=== PATIENT | male | born 1950 | race Caucasian/White ===

== ENCOUNTER 2019-04-21 10:45 | Inpatient (IN) ==
[2019-04-21] MEDS ORDERED: diphenhydrAMINE CAP 25 MG CAPSULE PO ONE (11:00)
[2019-04-21] MEDS ORDERED: DIAZEPAM 5 MG TABLET PO ONE (11:00)
[2019-04-21] MEDS: SODIUM CHLORIDE 0.9% 1,000 ML IV SCH ×2 (11:30→20:00)
[2019-04-21] MEDS ORDERED: ASPIRIN 325 MG TABLET ONE (11:37)
[2019-04-21] MEDS ORDERED: diphenhydrAMINE CAP 25 MG CAPSULE ONE (11:37)
[2019-04-21] MEDS ORDERED: DIAZEPAM 5 MG TABLET ONE (11:37)
[2019-04-21] MEDS ORDERED: ASPIRIN 325 MG TABLET PO ONE (11:44)
[2019-04-21] MEDS ORDERED: LIDOCAINE 1% 20 ML VIAL ONE (13:38)
[2019-04-21] MEDS ORDERED: HEPARIN/NACL 0.9% 2 UNITS/ML 1,000 ML IV ONE (13:38)
[2019-04-21] MEDS ORDERED: VERAPAMIL 5 MG/2 ML VIAL ONE (13:38)
[2019-04-21] MEDS ORDERED: NITROGLYCERIN DRIP 50 MG/250 ML BOTTLE IV ONE (13:38)
[2019-04-21] MEDS ORDERED: MIDAZOLAM 2 MG/2 ML VIAL ONE (13:43)
[2019-04-21] MEDS ORDERED: fentaNYL 100 MCG/2 ML VIAL ONE (13:44)
[2019-04-21] MEDS ORDERED: ENOXAPARIN 60 MG/0.6 ML SYRINGE ONE (14:00)
[2019-04-21] MEDS ORDERED: ACETAMINOPHEN 325 MG TABLET PO PRN (14:28)
[2019-04-21] MEDS ORDERED: ONDANSETRON 4 MG/2 ML VIAL IV PRN (14:28)
[2019-04-21] MEDS ORDERED: NITROGLYCERIN SL 0.4 MG TABLET SL PRN (14:30)
[2019-04-21] MEDS: ATORVASTATIN 80 MG TABLET PO SCH (20:08)
[2019-04-21] MEDS: oxyCODONE IR 5 MG TABLET PO PRN (20:08)
[2019-04-21] MEDS ORDERED: PRAVASTATIN 40 MG PO SCH (21:00)
[2019-04-21] MEDS ORDERED: METHOCARBAMOL 750 MG TABLET PO PRN (21:00)
[2019-04-21] MEDS: GABAPENTIN 100 MG CAPSULE PO SCH ×2 (21:34→22:15)
[2019-04-21] MEDS: ZALEPLON 5 MG CAPSULE PO SCH (22:15)
[2019-04-21] MEDS: LISINOPRIL 20 MG TABLET PO SCH (22:16)
[2019-04-21] MEDS: METOPROLOL TARTRATE 25 MG TABLET PO SCH (22:16)
[2019-04-21] MEDS: hydroCHLOROthiazide 12.5 MG CAPSULE PO SCH (22:16)
[2019-04-22] MEDS: SODIUM CHLORIDE 0.9% 1,000 ML IV SCH ×3 (03:08→21:12)
[2019-04-22] MEDS: oxyCODONE IR 5 MG TABLET PO PRN (04:14)
[2019-04-22 06:51] LABS: Basophils # 0.1 10*3/uL (0.0-0.2); Basophils % 0.8 % (0.0-0.8); Eosinophils # 0.4 10*3/uL (0.0-0.87); Eosinophils % 4.1 % (0.00-10.9); Hematocrit 37.8 VOL% (42.0-52.0); Hemoglobin 12.2 GM/DL (14.0-18.0); Immature Granulocytes % 0.2 %; Immature Granulocytes Absolute 0.02 #; Lymphocytes # 3.5 10*3/uL (1.4-4.0); Mean Corpuscular HGB Conc 32.3 GM/DL (32-36); Mean Corpuscular Volume 92.2 FL (87-102); Mean Platelet Volume 8.7 FL (9.6-12.0); Neutrophils % 46.9 % (38.7-73.9); Platelet Count 138 T/CUMM (130-400); Red Cell Distribution Width 14.2 % (9.3-17.3); White Blood Count 9.1 T/CUMM (4-12)
[2019-04-22 07:06] LABS: Calcium 9.1 MG/DL (8.5-10.1); Osmolality,Calculated 281.4 MOS/KG (273-304)
[2019-04-22] MEDS: NITROGLYCERIN SL 0.4 MG TABLET SL PRN (07:52)
[2019-04-22] MEDS: hydroCHLOROthiazide 12.5 MG CAPSULE PO SCH ×2 (08:17→21:34)
[2019-04-22] MEDS: ISOSORBIDE MONONITRATE 30 MG TABLET PO SCH (08:17)
[2019-04-22] MEDS: ASPIRIN EC 81 MG TABLET PO SCH (08:17)
[2019-04-22] MEDS: GABAPENTIN 100 MG CAPSULE PO SCH ×3 (08:17→21:34)
[2019-04-22] MEDS: METOPROLOL TARTRATE 25 MG TABLET PO SCH ×2 (08:17→21:34)
[2019-04-22] MEDS: LISINOPRIL 20 MG TABLET PO SCH ×2 (08:17→21:34)
[2019-04-22] MEDS: PANTOPRAZOLE 40 MG TABLET PO SCH ×2 (08:18→21:38)
[2019-04-22] MEDS: FLUoxetine 20 MG CAPSULE PO SCH (08:18)
[2019-04-22] MEDS ORDERED: PANTOPRAZOLE 40 MG TABLET PO SCH (09:00)
[2019-04-22] MEDS ORDERED: DEXTROSE 50% 25 GM/50 ML VIAL IV PRN (10:52)
[2019-04-22] MEDS ORDERED: diphenhydrAMINE CAP 25 MG CAPSULE PO PRN (10:52)
[2019-04-22] MEDS ORDERED: GLUCAGON 1 MG VIAL IM PRN (10:52)
[2019-04-22] MEDS ORDERED: ALUM/MAG/SIMETH/LIDO VISC 1:1 30 ML BOTTLE PO PRN (10:53)
[2019-04-22] MEDS: ASCORBIC ACID 500 MG TABLET PO SCH ×2 (11:38→21:35)
[2019-04-22] MEDS: INSULIN REGULAR 100 UNIT/ML SUBCUT SCH ×3 (15:35→21:10)
[2019-04-22] MEDS: oxyCODONE/ACETAMINOPHEN 5-325 MG TABLET PO PRN ×2 (15:36→21:35)
[2019-04-22] MEDS: ATORVASTATIN 80 MG TABLET PO SCH (21:33)
[2019-04-22] MEDS: ZALEPLON 5 MG CAPSULE PO SCH (21:35)
[2019-04-23] MEDS: SODIUM CHLORIDE 0.9% 1,000 ML IV SCH ×4 (02:33→20:00)
[2019-04-23 06:23] LABS: Basophils # 0.1 10*3/uL (0.0-0.2); Basophils % 0.9 % (0.0-0.8); Eosinophils # 0.4 10*3/uL (0.0-0.87); Eosinophils % 5.5 % (0.00-10.9); Hemoglobin 11.7 GM/DL (14.0-18.0); Immature Granulocytes % 0.4 %; Immature Granulocytes Absolute 0.03 #; Lymphocytes # 2.4 10*3/uL (1.4-4.0); Lymphocytes % 35.2 % (21.2-54.2); Mean Corpuscular HGB Conc 32.5 GM/DL (32-36); Mean Corpuscular Volume 92.8 FL (87-102); Mean Platelet Volume 9.4 FL (9.6-12.0); Monocytes % 10.7 % (1.7-12.7); Neutrophils % 47.3 % (38.7-73.9); Platelet Count 131 T/CUMM (130-400); Red Blood Count 3.88 MC/CUMM (3.8-5.5); Red Cell Distribution Width 14.2 % (9.3-17.3); White Blood Count 6.7 T/CUMM (4-12)
[2019-04-23 06:45] LABS: Calcium 9.3 MG/DL (8.5-10.1); Osmolality,Calculated 279.5 MOS/KG (273-304)
[2019-04-23] MEDS ORDERED: GLUCAGON 1 MG VIAL IM PRN (06:59)
[2019-04-23] MEDS ORDERED: CEFUROXIME INJ 1,500 MG in SODIUM CHLORIDE 0.9% 100 ML IV ONE (06:59)
[2019-04-23] MEDS ORDERED: DEXTROSE 50% 25 GM/50 ML VIAL IV PRN (06:59)
[2019-04-23] MEDS ORDERED: CEFUROXIME INJ 1,500 MG in SYRINGE 1 EACH IV ONE (07:30)
[2019-04-23] MEDS: oxyCODONE/ACETAMINOPHEN 5-325 MG TABLET PO PRN ×3 (07:43→23:43)
[2019-04-23 08:10] LABS: ABG Base Excess 0.9 MMOL/L (-2.5-2.5); ABG HCO3 24.7 MMOL/L (20-26); ABG Oxygen Saturation 95.3 % (95-100); ABG PCO2 36.9 MM HG (35-48); ABG PH 7.444 (7.35-7.45); ABG PO2 78.9 MM HG (80-95); ABG TCO2 25.9 MMOL/L (23-27)
[2019-04-23] MEDS: INSULIN REGULAR 100 UNIT/ML SUBCUT SCH ×4 (08:38→21:17)
[2019-04-23] MEDS: CHLORHEXIDINE 0.12% ORAL RINSE 60 ML BOTTLE SWISH/SPIT SCH ×2 (08:38→21:17)
[2019-04-23] MEDS: LISINOPRIL 20 MG TABLET PO SCH ×2 (08:41→21:16)
[2019-04-23] MEDS: PANTOPRAZOLE 40 MG TABLET PO SCH ×2 (08:41→21:17)
[2019-04-23] MEDS: ASPIRIN EC 81 MG TABLET PO SCH (08:41)
[2019-04-23] MEDS: ASCORBIC ACID 500 MG TABLET PO SCH ×2 (08:42→21:17)
[2019-04-23] MEDS: FLUoxetine 20 MG CAPSULE PO SCH (08:42)
[2019-04-23] MEDS: ISOSORBIDE MONONITRATE 30 MG TABLET PO SCH (08:42)
[2019-04-23] MEDS: METOPROLOL TARTRATE 25 MG TABLET PO SCH ×2 (08:42→21:19)
[2019-04-23] MEDS: GABAPENTIN 100 MG CAPSULE PO SCH ×3 (08:43→21:17)
[2019-04-23] MEDS: hydroCHLOROthiazide 12.5 MG CAPSULE PO SCH ×2 (08:43→21:16)
[2019-04-23] MEDS: CHLORHEXIDINE 4% SOLN 118 ML BOTTLE TOP SCH ×3 (09:31→21:17)
[2019-04-23] MEDS: NITROGLYCERIN SL 0.4 MG TABLET SL PRN (10:50)
[2019-04-23] MEDS ORDERED: MAGNESIUM SULF RIDER 2 GM in PREMIX 1 EACH IV PRN (11:11)
[2019-04-23] MEDS ORDERED: MAGNESIUM SULF RIDER 4 GM in PREMIX 1 EACH IV PRN (11:11)
[2019-04-23] MEDS: ENOXAPARIN 80 MG/0.8 ML SYRINGE SUBCUT SCH ×2 (12:20→23:12)
[2019-04-23] MEDS: ALPRAZolam 0.25 MG TABLET PO PRN ×2 (15:14→23:12)
[2019-04-23] MEDS: ZALEPLON 5 MG CAPSULE PO SCH (21:16)
[2019-04-23] MEDS: ATORVASTATIN 80 MG TABLET PO SCH (21:17)
[2019-04-24] MEDS: SODIUM CHLORIDE 0.9% 1,000 ML IV SCH ×3 (02:46→12:36)
[2019-04-24] MEDS ORDERED: VANCOMYCIN 500 MG VIAL ONE (05:18)
[2019-04-24] MEDS ORDERED: PAPAVERINE 60 MG/2 ML VIAL ONE (05:18)
[2019-04-24] MEDS ORDERED: VANCOMYCIN 1,000 MG VIAL ONE (05:18)
[2019-04-24 05:25] LABS: Basophils # 0.1 10*3/uL (0.0-0.2); Eosinophils # 0.4 10*3/uL (0.0-0.87); Eosinophils % 5.4 % (0.00-10.9); Hematocrit 37.4 VOL% (42.0-52.0); Hemoglobin 11.9 GM/DL (14.0-18.0); Immature Granulocytes % 0.3 %; Immature Granulocytes Absolute 0.02 #; Lymphocytes # 2.7 10*3/uL (1.4-4.0); Lymphocytes % 39.1 % (21.2-54.2); Mean Corpuscular HGB Conc 31.8 GM/DL (32-36); Mean Corpuscular Volume 93.7 FL (87-102); Mean Platelet Volume 9.3 FL (9.6-12.0); Monocytes % 9.5 % (1.7-12.7); Neutrophils % 44.7 % (38.7-73.9); Platelet Count 143 T/CUMM (130-400); Red Blood Count 3.99 MC/CUMM (3.8-5.5); Red Cell Distribution Width 14.2 % (9.3-17.3); White Blood Count 6.8 T/CUMM (4-12)
[2019-04-24] MEDS: METOPROLOL TARTRATE 25 MG TABLET PO SCH ×2 (05:49→08:28)
[2019-04-24 06:18] LABS: Albumin 3.5 G/DL (3.4-5.0); Bilirubin,Total 0.8 MG/DL (0.2-1.0); Calcium 9.7 MG/DL (8.5-10.1); Osmolality,Calculated 284.3 MOS/KG (273-304); Total Protein 6.8 G/DL (6.4-8.3)
[2019-04-24] MEDS ORDERED: SUFentanil 250 MCG/5 ML AMP ONE (06:20)
[2019-04-24] MEDS ORDERED: MIDAZOLAM 10 MG/2 ML VIAL ONE (06:20)
[2019-04-24] MEDS ORDERED: PHENYLEPHRINE DRIP 40 MG/250 ML PREMIX IV ONE (07:23)
[2019-04-24] MEDS ORDERED: NITROPRUSSIDE 50 MG/2 ML VIAL ONE (07:24)
[2019-04-24] MEDS ORDERED: ALBUMIN 5% 12.5 GM/250 ML VIAL IV ONE (07:24)
[2019-04-24] MEDS: CEFUROXIME INJ 1,500 MG in SYRINGE 1 EACH IV ONE ×2 (07:39→07:46)
[2019-04-24] MEDS: INSULIN REGULAR 100 UNIT/ML SUBCUT SCH ×2 (07:40→12:36)
[2019-04-24 07:47] LABS: ABG Base Excess -0.7 MMOL/L (-2.5-2.5); ABG HCO3 23.9 MMOL/L (20-26); ABG PCO2 36.9 MM HG (35-48); ABG PH 7.413 (7.35-7.45); Glucose Heart Surgery 173 MG/DL (74-106); Hematocrit Heart Surgery 35.5 PERCENT (42-52); Hemoglobin Heart Surgery 11.5 G/DL (14.0-18.0); Ionized Calcium Arterial 1.23 MMOL/L (1.21-1.46); PCO2 Patient Temp Arterial 36.9 MMHG; PH Patient Temp Arterial 7.413; Patient Temperature 37 CELCIUS; Potassium Heart/CVR 3.5 MMOL/L (3.5-5.1); Sodium Heart/CVR 138 MMOL/L (135-145)
[2019-04-24] MEDS: hydroCHLOROthiazide 12.5 MG CAPSULE PO SCH (08:27)
[2019-04-24] MEDS: ISOSORBIDE MONONITRATE 30 MG TABLET PO SCH (08:27)
[2019-04-24] MEDS: ASPIRIN EC 81 MG TABLET PO SCH (08:27)
[2019-04-24] MEDS: PANTOPRAZOLE 40 MG TABLET PO SCH (08:28)
[2019-04-24] MEDS: GABAPENTIN 100 MG CAPSULE PO SCH (08:28)
[2019-04-24] MEDS: CHLORHEXIDINE 0.12% ORAL RINSE 60 ML BOTTLE SWISH/SPIT SCH ×2 (08:28→21:33)
[2019-04-24] MEDS: LISINOPRIL 20 MG TABLET PO SCH (08:28)
[2019-04-24] MEDS: FLUoxetine 20 MG CAPSULE PO SCH (08:28)
[2019-04-24] MEDS: ASCORBIC ACID 500 MG TABLET PO SCH (08:28)
[2019-04-24 08:33] LABS: Amorphous Crystals,Urine Occasional /HPF (Few); Apearance,Urine Slightly Hazy (Clear); Bilirubin,Urine Negative (Negative); Blood, Urine Negative (Negative); Glucose,Urine (UA) Negative (Negative); Hyaline Casts,Urine 8 /LPF (0-3); Ketones,Urine Negative (Negative); Nitrite,Urine Negative (Negative); Protein,Urine Negative; RBC,Urine 1 /HPF (0-4); Urine Color Yellow (Yellow); Urine Specific Gravity 1.011 (1.001-1.035); Urine Urobilinogen < 2.0 EU/DL (0.2-1.0); WBC,Urine 1 /HPF (0-6)
[2019-04-24] MEDS ORDERED: AMINOCAPROIC ACID 5,000 MG/20 ML VIAL ONE (09:28)
[2019-04-24] MEDS ORDERED: HEPARIN/NACL 0.9% 2 UNITS/ML 500 ML IV ONE (09:28)
[2019-04-24] MEDS ORDERED: PHENYLEPHRINE DRIP 20 MG/250 ML PREMIX IV ONE (09:28)
[2019-04-24] MEDS ORDERED: NITROGLYCERIN DRIP 50 MG/250 ML BOTTLE IV ONE (09:28)
[2019-04-24 09:29] LABS: Hematocrit Heart Surgery 23.8 PERCENT (42-52); Hemoglobin Heart Surgery 7.6 G/DL (14.0-18.0); PCO2 Patient Temp Venous 34.5 MM HG; PH Patient Temp Venous 7.449; PO2 Patient Temp Venous 42.6 MM HG; Potassium Heart/CVR 4.7 MMOL/L (3.5-5.1); VBG Base Excess 0.3 MEQ/L (0-4); VBG HCO3 24.6 MEQ/L (24-28); VBG Oxygen Saturation 87.9 %; VBG PCO2 39.9 MMHG (41-51); VBG PH 7.405; VBG PO2 52.2 MMHG (17-40)
[2019-04-24] MEDS ORDERED: POTASSIUM CHLORIDE RIDER 100 ML IV ONE (09:49)
[2019-04-24 09:59] LABS: Hematocrit Heart Surgery 26.5 PERCENT (42-52); Hemoglobin Heart Surgery 8.5 G/DL (14.0-18.0); PH Patient Temp Venous 7.499; PO2 Patient Temp Venous 38.2 MM HG; Potassium Heart/CVR 4.9 MMOL/L (3.5-5.1); VBG Base Excess 0.7 MEQ/L (0-4); VBG HCO3 24.9 MEQ/L (24-28); VBG Oxygen Saturation 85.7 %; VBG PCO2 34.7 MMHG (41-51); VBG PH 7.454
[2019-04-24 10:29] LABS: Hematocrit Heart Surgery 28.1 PERCENT (42-52); PCO2 Patient Temp Venous 35.5 MM HG; PH Patient Temp Venous 7.443; PO2 Patient Temp Venous 38.1 MM HG; Potassium Heart/CVR 5.3 MMOL/L (3.5-5.1); VBG Base Excess 0.5 MEQ/L (0-4); VBG HCO3 24.5 MEQ/L (24-28); VBG Oxygen Saturation 75.1 %; VBG PCO2 35.5 MMHG (41-51); VBG PH 7.443; VBG PO2 38.1 MMHG (17-40)
[2019-04-24 11:11] LABS: ABG Base Excess -1.5 MMOL/L (-2.5-2.5); ABG HCO3 23.2 MMOL/L (20-26); ABG Oxygen Saturation 99.5 % (95-100); ABG PH 7.418 (7.35-7.45); ABG TCO2 20.8 MMOL/L (23-27); Glucose Heart Surgery 264 MG/DL (74-106); Hematocrit Heart Surgery 28.4 PERCENT (42-52); Hemoglobin Heart Surgery 9.2 G/DL (14.0-18.0); Ionized Calcium Arterial 1.27 MMOL/L (1.21-1.46); PH Patient Temp Arterial 7.418; Patient Temperature 37 CELCIUS; Potassium Heart/CVR 4.3 MMOL/L (3.5-5.1); Sodium Heart/CVR 132 MMOL/L (135-145)
[2019-04-24] MEDS ORDERED: MANNITOL 100 GM/500 ML BAG IV ONE (11:22)
[2019-04-24] MEDS ORDERED: LIDOCAINE 2% 5 ML VIAL ONE ×2 (11:22→12:20)
[2019-04-24] MEDS ORDERED: FUROSEMIDE 20 MG/2 ML VIAL ONE (11:23)
[2019-04-24] MEDS ORDERED: methylPREDNISolone SOD SUC 1,000 MG/8 ML VIAL ONE (11:23)
[2019-04-24] MEDS ORDERED: DEXTROSE 5% KCL 20 MEQ 20 MEQ/1,000 ML BAG IV ONE (11:23)
[2019-04-24] MEDS ORDERED: PROTAMINE SULFATE 250 MG/25 ML VIAL IV ONE (11:23)
[2019-04-24] MEDS ORDERED: MAGNESIUM SULFATE 5 GM/10 ML VIAL IV ONE (11:23)
[2019-04-24] MEDS ORDERED: HEPARIN 10,000 UNIT/10 ML VIAL ONE (11:23)
[2019-04-24] MEDS ORDERED: SODIUM BICARBONATE 50 MEQ/50 ML VIAL IV ONE (11:23)
[2019-04-24] MEDS ORDERED: ALBUMIN 25% 25 GM/100 ML VIAL IV ONE (11:23)
[2019-04-24] MEDS ORDERED: CALCIUM CHLORIDE 1,000 MG/10 ML VIAL IV ONE (12:20)
[2019-04-24] MEDS ORDERED: SODIUM CHLORIDE 0.9% 2,000 ML IV ONE (12:20)
[2019-04-24] MEDS ORDERED: ETOMIDATE 40 MG/20 ML VIAL IV ONE (12:20)
[2019-04-24] MEDS ORDERED: ePHEDrine 50 MG/ML AMP ONE (12:20)
[2019-04-24] MEDS ORDERED: LACTATED RINGERS 1,000 ML IV ONE (12:20)
[2019-04-24] MEDS ORDERED: VECURONIUM 10 MG VIAL IV ONE (12:20)
[2019-04-24] MEDS ORDERED: PROTAMINE SULFATE 50 MG/5 ML VIAL IV ONE (12:22)
[2019-04-24] MEDS ORDERED: MORPHINE 4 MG/1 ML VIAL IV PRN (12:32)
[2019-04-24] MEDS ORDERED: MIDAZOLAM 2 MG/2 ML VIAL IV PRN (12:32)
[2019-04-24] MEDS ORDERED: VECURONIUM 10 MG VIAL IV PRN ×2 (12:32)
[2019-04-24] MEDS ORDERED: CALCIUM CHLORIDE 1,000 MG/10 ML SYRINGE IV PRN (12:32)
[2019-04-24] MEDS ORDERED: LACTATED RINGERS 250 ML IV PRN (12:32)
[2019-04-24] MEDS ORDERED: NITROPRUSSIDE 100 MG in DEXTROSE 5% 250 ML IV PRN (12:32)
[2019-04-24] MEDS ORDERED: MIDAZOLAM 10 MG/2 ML VIAL IV PRN (12:32)
[2019-04-24] MEDS ORDERED: SODIUM CHLORIDE 0.45% 1,000 ML IV SCH (12:32)
[2019-04-24] MEDS ORDERED: MAGNESIUM SULF RIDER 4 GM in PREMIX 1 EACH IV PRN (12:32)
[2019-04-24] MEDS ORDERED: MAGNESIUM SULF RIDER 2 GM in PREMIX 1 EACH IV PRN (12:32)
[2019-04-24] MEDS ORDERED: PHENYLEPHRINE DRIP 40 MG/250 ML PREMIX IV PRN (12:32)
[2019-04-24] MEDS ORDERED: ACETAMINOPHEN 650 MG SUPP RECTAL PRN (12:32)
[2019-04-24] MEDS ORDERED: POTASSIUM CHLORIDE RIDER 10 MEQ in PREMIX 1 EACH IV PRN (12:32)
[2019-04-24] MEDS ORDERED: ONDANSETRON 4 MG/2 ML VIAL IV PRN (12:32)
[2019-04-24] MEDS ORDERED: INSULIN REGULAR 100 UNIT/ML IV ONE (12:32)
[2019-04-24] MEDS ORDERED: DEXTROSE 50% 25 GM/50 ML VIAL IV PRN ×2 (12:32)
[2019-04-24] MEDS: ENOXAPARIN 80 MG/0.8 ML SYRINGE SUBCUT SCH (12:35)
[2019-04-24 12:38] LABS: ABG Base Excess -3.6 MMOL/L (-2.5-2.5); ABG HCO3 21.4 MMOL/L (20-26); ABG Oxygen Saturation 97.4 % (95-100); ABG PH 7.309 (7.35-7.45); ABG TCO2 21.2 MMOL/L (23-27); Glucose Heart Surgery 232 MG/DL (74-106); Hematocrit Heart Surgery 25.9 PERCENT (42-52); Hemoglobin Heart Surgery 8.3 G/DL (14.0-18.0); Potassium Heart/CVR 3.6 MMOL/L (3.5-5.1)
[2019-04-24 12:40] LABS: Basophils % 0.3 % (0.0-0.8); Eosinophils # 0.1 10*3/uL (0.0-0.87); Eosinophils % 0.6 % (0.00-10.9); Hematocrit 25.5 VOL% (42.0-52.0); Hemoglobin 8.3 GM/DL (14.0-18.0); Immature Granulocytes % 0.5 %; Immature Granulocytes Absolute 0.05 #; Lymphocytes # 1.1 10*3/uL (1.4-4.0); Lymphocytes % 10.5 % (21.2-54.2); Mean Corpuscular HGB Conc 32.5 GM/DL (32-36); Mean Corpuscular Volume 92.7 FL (87-102); Mean Platelet Volume 9.3 FL (9.6-12.0); Monocytes % 5.4 % (1.7-12.7); Neutrophils % 82.7 % (38.7-73.9); Platelet Count 110 T/CUMM (130-400); Red Blood Count 2.75 MC/CUMM (3.8-5.5); Red Cell Distribution Width 14.4 % (9.3-17.3); White Blood Count 10.1 T/CUMM (4-12)
[2019-04-24 12:51] LABS: INR 1.3
[2019-04-24] MEDS: SODIUM CHLORIDE 0.45% 1,000 ML IV SCH (12:58)
[2019-04-24] MEDS: KETOROLAC 30 MG/1 ML VIAL IV SCH ×2 (13:00→18:30)
[2019-04-24 13:01] LABS: CKMB % 5.1 %
[2019-04-24 13:03] LABS: Troponin I 3.26 NG/ML (0.00-0.045)
[2019-04-24] MEDS: POTASSIUM CHLORIDE RIDER 20 MEQ in PREMIX 1 EACH IV PRN ×4 (13:15→21:10)
[2019-04-24 13:16] LABS: Bilirubin,Total 0.6 MG/DL (0.2-1.0); Osmolality,Calculated 285.4 MOS/KG (273-304); Total Protein 5.2 G/DL (6.4-8.3)
[2019-04-24] MEDS: LACTATED RINGERS 1,000 ML IV PRN ×4 (13:30→21:52)
[2019-04-24] MEDS: ALBUMIN 5% 12.5 GM in PREMIX 1 EACH IV PRN ×3 (14:25→22:29)
[2019-04-24 14:29] LABS: ABG HCO3 21.1 MMOL/L (20-26); ABG Oxygen Saturation 98.6 % (95-100); ABG PCO2 36.9 MM HG (35-48); ABG PH 7.362 (7.35-7.45); Glucose Heart Surgery 233 MG/DL (74-106); Hemoglobin Heart Surgery 10.4 G/DL (14.0-18.0)
[2019-04-24] MEDS: INSULIN REGULAR DRIP 100 ML IV SCH ×2 (14:38→23:12)
[2019-04-24 16:21] LABS: ABG Base Excess -2.6 MMOL/L (-2.5-2.5); ABG HCO3 22.2 MMOL/L (20-26); ABG Oxygen Saturation 96.7 % (95-100); ABG PCO2 40.7 MM HG (35-48); ABG PH 7.355 (7.35-7.45); ABG PO2 80.8 MM HG (80-95); ABG TCO2 21.1 MMOL/L (23-27); Glucose Heart Surgery 198 MG/DL (74-106); Hematocrit Heart Surgery 26.8 PERCENT (42-52); Hemoglobin Heart Surgery 8.6 G/DL (14.0-18.0); Potassium Heart/CVR 4.1 MMOL/L (3.5-5.1)
[2019-04-24] MEDS: INSULIN REGULAR 100 UNIT/ML IV PRN ×2 (16:35→20:20)
[2019-04-24] MEDS ORDERED: MIDAZOLAM 2 MG/2 ML VIAL IV ONE (16:50)
[2019-04-24] MEDS: ALBUTEROL/IPRATROPIUM 3 ML NEB RESP TX SCH ×3 (18:10→23:29)
[2019-04-24 18:16] LABS: ABG Base Excess -1.1 MMOL/L (-2.5-2.5); ABG HCO3 23.4 MMOL/L (20-26); ABG Oxygen Saturation 96.2 % (95-100); ABG PCO2 41.4 MM HG (35-48); ABG PH 7.372 (7.35-7.45); ABG PO2 75.8 MM HG (80-95); ABG TCO2 22.3 MMOL/L (23-27); Glucose Heart Surgery 185 MG/DL (74-106); Hematocrit Heart Surgery 26.6 PERCENT (42-52); Hemoglobin Heart Surgery 8.6 G/DL (14.0-18.0); Potassium Heart/CVR 4.4 MMOL/L (3.5-5.1)
[2019-04-24] MEDS ORDERED: FUROSEMIDE 40 MG/4 ML VIAL IV ONE (18:22)
[2019-04-24 20:18] LABS: ABG Base Excess -0.7 MMOL/L (-2.5-2.5); ABG HCO3 23.8 MMOL/L (20-26); ABG Oxygen Saturation 96.8 % (95-100); ABG PCO2 43.4 MM HG (35-48); ABG PH 7.365 (7.35-7.45); ABG PO2 83.7 MM HG (80-95); ABG TCO2 22.6 MMOL/L (23-27); Glucose Heart Surgery 146 MG/DL (74-106); Hematocrit Heart Surgery 31.4 PERCENT (42-52); Hemoglobin Heart Surgery 10.2 G/DL (14.0-18.0); Potassium Heart/CVR 3.7 MMOL/L (3.5-5.1)
[2019-04-24] MEDS: CEFUROXIME INJ 1,500 MG in SYRINGE 1 EACH IV SCH (21:31)
[2019-04-24 21:40] LABS: Troponin I 3.89 NG/ML (0.00-0.045)
[2019-04-24] MEDS: MORPHINE 10 MG/1 ML VIAL IV PRN (23:01)
[2019-04-24] MEDS ORDERED: AMIODARONE INJ 150 MG in DEXTROSE 5% 100 ML IV ONE (23:53)
[2019-04-25] MEDS: POTASSIUM CHLORIDE RIDER 20 MEQ in PREMIX 1 EACH IV PRN ×2 (00:31→04:22)
[2019-04-25] MEDS: KETOROLAC 30 MG/1 ML VIAL IV SCH ×4 (00:45→17:49)
[2019-04-25] MEDS: ALBUTEROL/IPRATROPIUM 3 ML NEB RESP TX SCH ×6 (02:59→23:15)
[2019-04-25] MEDS: MORPHINE 10 MG/1 ML VIAL IV PRN (03:30)
[2019-04-25 04:01] LABS: ABG HCO3 24.5 MMOL/L (20-26); ABG Oxygen Saturation 98.2 % (95-100); ABG PCO2 36.3 MM HG (35-48); ABG PO2 91.9 MM HG (80-95); ABG TCO2 22.2 MMOL/L (23-27); Glucose Heart Surgery 116 MG/DL (74-106); Hematocrit Heart Surgery 27.2 PERCENT (42-52); Hemoglobin Heart Surgery 8.8 G/DL (14.0-18.0); Potassium Heart/CVR 4.4 MMOL/L (3.5-5.1)
[2019-04-25 04:03] LABS: Hematocrit 25.1 VOL% (42.0-52.0); Hemoglobin 8.4 GM/DL (14.0-18.0); Immature Granulocytes % 0.4 %; Immature Granulocytes Absolute 0.05 #; Lymphocytes # 0.5 10*3/uL (1.4-4.0); Lymphocytes % 4.2 % (21.2-54.2); Mean Corpuscular HGB Conc 33.5 GM/DL (32-36); Mean Corpuscular Volume 89.6 FL (87-102); Monocytes % 3.6 % (1.7-12.7); Neutrophils % 91.8 % (38.7-73.9); Platelet Count 115 T/CUMM (130-400); Red Cell Distribution Width 15.1 % (9.3-17.3); White Blood Count 11.3 T/CUMM (4-12)
[2019-04-25] MEDS ORDERED: FUROSEMIDE 40 MG/4 ML VIAL IV ONE ×2 (04:06→18:31)
[2019-04-25 04:27] LABS: Albumin 3.2 G/DL (3.4-5.0); Bilirubin,Direct 0.22 MG/DL (0.0-0.20); Calcium 8.4 MG/DL (8.5-10.1); Osmolality,Calculated 283.3 MOS/KG (273-304); Total Protein 5.5 G/DL (6.4-8.3)
[2019-04-25 04:28] LABS: CKMB % 2.6 %
[2019-04-25 04:31] LABS: Troponin I 3.59 NG/ML (0.00-0.045)
[2019-04-25 04:48] LABS: Anisocytosis Slight; Lymphocytes 6 % (20-55); Microcytosis 1+; Platelet Estimate Adequate; Segmented Neutrophils 94 % (50-85); Total Cells Counted 100
[2019-04-25 04:49] LABS: Polychromasia Slight; Stomatocytes Slight
[2019-04-25 05:18] LABS: ABG Base Excess 0.7 MMOL/L (-2.5-2.5); ABG Oxygen Saturation 94.3 % (95-100); ABG PCO2 36.2 MM HG (35-48); ABG PO2 64.3 MM HG (80-95); ABG TCO2 22.7 MMOL/L (23-27); Glucose Heart Surgery 133 MG/DL (74-106); Hematocrit Heart Surgery 27.2 PERCENT (42-52); Hemoglobin Heart Surgery 8.8 G/DL (14.0-18.0); Potassium Heart/CVR 4.8 MMOL/L (3.5-5.1)
[2019-04-25 06:00] LABS: ABG HCO3 25.3 MMOL/L (20-26); ABG Oxygen Saturation 96.5 % (95-100); ABG PCO2 31.5 MM HG (35-48); ABG PH 7.488 (7.35-7.45); Glucose Heart Surgery 137 MG/DL (74-106); Hematocrit Heart Surgery 27.2 PERCENT (42-52); Hemoglobin Heart Surgery 8.8 G/DL (14.0-18.0); Potassium Heart/CVR 4.9 MMOL/L (3.5-5.1)
[2019-04-25] MEDS ORDERED: AMIODARONE INJ 450 MG in DEXTROSE 5% 241 ML IV SCH ×2 (06:00)
[2019-04-25 08:02] LABS: ABG Base Excess -0.4 MMOL/L (-2.5-2.5); ABG HCO3 24.1 MMOL/L (20-26); ABG Oxygen Saturation 98.2 % (95-100); ABG PCO2 31.6 MM HG (35-48); ABG PH 7.465 (7.35-7.45); ABG PO2 90.6 MM HG (80-95); ABG TCO2 20.8 MMOL/L (23-27); Glucose Heart Surgery 156 MG/DL (74-106); Hematocrit Heart Surgery 28.8 PERCENT (42-52); Hemoglobin Heart Surgery 9.3 G/DL (14.0-18.0); Potassium Heart/CVR 4.6 MMOL/L (3.5-5.1)
[2019-04-25] MEDS: INSULIN REGULAR 100 UNIT/ML SUBCUT SCH ×4 (08:09→21:11)
[2019-04-25] MEDS: CEFUROXIME INJ 1,500 MG in SYRINGE 1 EACH IV SCH ×2 (08:30→21:09)
[2019-04-25] MEDS: CHLORHEXIDINE 0.12% ORAL RINSE 60 ML BOTTLE SWISH/SPIT SCH ×2 (08:32→21:08)
[2019-04-25] MEDS ORDERED: METHOCARBAMOL 750 MG TABLET PO PRN (09:00)
[2019-04-25] MEDS ORDERED: DEXTROSE 50% 25 GM/50 ML VIAL IV PRN (09:02)
[2019-04-25] MEDS ORDERED: HYDROmorphone 2 MG/1 ML VIAL IV PRN (09:02)
[2019-04-25] MEDS ORDERED: GLUCAGON 1 MG VIAL IM PRN (09:02)
[2019-04-25] MEDS: AMIODARONE 200 MG TABLET PO SCH ×2 (09:13→21:35)
[2019-04-25] MEDS: METOPROLOL TARTRATE 25 MG TABLET PO SCH ×2 (09:33→21:35)
[2019-04-25] MEDS: LISINOPRIL 20 MG TABLET PO SCH ×2 (09:33→21:34)
[2019-04-25] MEDS: hydroCHLOROthiazide 12.5 MG CAPSULE PO SCH ×2 (09:33→21:35)
[2019-04-25] MEDS: ASCORBIC ACID 500 MG TABLET PO SCH ×2 (09:33→21:34)
[2019-04-25] MEDS: ASPIRIN EC 81 MG TABLET PO SCH (09:33)
[2019-04-25] MEDS: PANTOPRAZOLE 40 MG TABLET PO SCH ×2 (09:33→21:34)
[2019-04-25] MEDS: ISOSORBIDE MONONITRATE 30 MG TABLET PO SCH (09:33)
[2019-04-25 13:49] LABS: CKMB % 2.3 %; Troponin I 2.56 NG/ML (0.00-0.045)
[2019-04-25] MEDS: CLORAZEPATE 7.5 MG TABLET PO PRN ×2 (13:55→21:36)
[2019-04-25] MEDS: HYDROmorphone 2 MG/1 ML VIAL IV PRN ×2 (14:45→21:35)
[2019-04-25] MEDS: ATORVASTATIN 80 MG TABLET PO SCH (21:35)
[2019-04-26] MEDS: INSULIN REGULAR 100 UNIT/ML SUBCUT SCH ×4 (00:40→12:50)
[2019-04-26] MEDS: HYDROmorphone 2 MG/1 ML VIAL IV PRN ×6 (00:40→21:54)
[2019-04-26] MEDS: ALBUTEROL/IPRATROPIUM 3 ML NEB RESP TX SCH ×5 (02:53→21:30)
[2019-04-26] MEDS: SODIUM CHLORIDE 0.45% 1,000 ML IV SCH ×2 (04:15→13:52)
[2019-04-26 04:28] LABS: Basophils % 0.1 % (0.0-0.8); Hematocrit 24.6 VOL% (42.0-52.0); Hemoglobin 7.9 GM/DL (14.0-18.0); Immature Granulocytes % 0.4 %; Immature Granulocytes Absolute 0.05 #; Lymphocytes # 0.7 10*3/uL (1.4-4.0); Lymphocytes % 5.3 % (21.2-54.2); Mean Corpuscular HGB Conc 32.1 GM/DL (32-36); Mean Corpuscular Volume 92.5 FL (87-102); Mean Platelet Volume 10.3 FL (9.6-12.0); Monocytes % 10.4 % (1.7-12.7); Neutrophils % 83.8 % (38.7-73.9); Platelet Count 111 T/CUMM (130-400); Red Blood Count 2.66 MC/CUMM (3.8-5.5); Red Cell Distribution Width 15.8 % (9.3-17.3); White Blood Count 12.3 T/CUMM (4-12)
[2019-04-26 04:50] LABS: Albumin 3.1 G/DL (3.4-5.0); Bilirubin,Direct 0.1 MG/DL (0.0-0.20); Bilirubin,Total 0.5 MG/DL (0.2-1.0); Calcium 8.4 MG/DL (8.5-10.1); Osmolality,Calculated 292.1 MOS/KG (273-304); Total Protein 5.4 G/DL (6.4-8.3)
[2019-04-26] MEDS: ASCORBIC ACID 500 MG TABLET PO SCH ×2 (08:18→21:54)
[2019-04-26] MEDS: PANTOPRAZOLE 40 MG TABLET PO SCH ×2 (08:18→15:51)
[2019-04-26] MEDS: CHLORHEXIDINE 0.12% ORAL RINSE 60 ML BOTTLE SWISH/SPIT SCH ×3 (08:18→22:08)
[2019-04-26] MEDS: AMIODARONE 200 MG TABLET PO SCH ×2 (08:18→21:54)
[2019-04-26] MEDS: ISOSORBIDE MONONITRATE 30 MG TABLET PO SCH (08:18)
[2019-04-26] MEDS: ASPIRIN EC 81 MG TABLET PO SCH (08:19)
[2019-04-26] MEDS: oxyCODONE IR 5 MG TABLET PO PRN (11:48)
[2019-04-26] MEDS: LISINOPRIL 20 MG TABLET PO SCH (11:53)
[2019-04-26] MEDS: METOPROLOL TARTRATE 25 MG TABLET PO SCH ×2 (11:54→21:33)
[2019-04-26] MEDS: hydroCHLOROthiazide 12.5 MG CAPSULE PO SCH ×2 (11:54→21:34)
[2019-04-26 14:45] LABS: Hematocrit 29.2 VOL% (42.0-52.0); Hemoglobin 9.5 GM/DL (14.0-18.0)
[2019-04-26] MEDS ORDERED: ALUMINUM/MAGNES/SIMETH MAX STR 30 ML UDCUP PO PRN (14:59)
[2019-04-26] MEDS ORDERED: GLUCAGON 1 MG VIAL IM PRN ×2 (14:59)
[2019-04-26] MEDS ORDERED: ONDANSETRON 4 MG/2 ML VIAL IV PRN (14:59)
[2019-04-26] MEDS ORDERED: ACETAMINOPHEN 325 MG TABLET PO PRN (14:59)
[2019-04-26] MEDS ORDERED: DEXTROSE 50% 25 GM/50 ML VIAL IV PRN ×3 (14:59→15:07)
[2019-04-26] MEDS ORDERED: SODIUM CHLOR 0.45% KCL 20 MEQ 20 MEQ/1,000 ML BAG IV SCH (14:59)
[2019-04-26] MEDS ORDERED: MAGNESIUM SULF RIDER 4 GM in PREMIX 1 EACH IV PRN (14:59)
[2019-04-26] MEDS: DOCUSATE SODIUM 100 MG CAPSULE PO SCH (15:51)
[2019-04-26] MEDS: FERROUS SULFATE 325 MG TABLET PO SCH (15:51)
[2019-04-26] MEDS: ZALEPLON 5 MG CAPSULE PO PRN (21:54)
[2019-04-26] MEDS: ATORVASTATIN 80 MG TABLET PO SCH (21:54)
[2019-04-26] MEDS: CLORAZEPATE 7.5 MG TABLET PO PRN (21:54)
[2019-04-27] MEDS: ALBUTEROL/IPRATROPIUM 3 ML NEB RESP TX SCH ×6 (00:22→19:19)
[2019-04-27] MEDS: HYDROmorphone 2 MG/1 ML VIAL IV PRN ×8 (00:35→23:38)
[2019-04-27 04:49] LABS: Basophils % 0.1 % (0.0-0.8); Eosinophils # 0.2 10*3/uL (0.0-0.87); Eosinophils % 2.1 % (0.00-10.9); Hematocrit 27.6 VOL% (42.0-52.0); Hemoglobin 8.7 GM/DL (14.0-18.0); Immature Granulocytes % 0.7 %; Immature Granulocytes Absolute 0.07 #; Lymphocytes % 18.8 % (21.2-54.2); Mean Corpuscular HGB Conc 31.5 GM/DL (32-36); Mean Corpuscular Volume 93.6 FL (87-102); Mean Platelet Volume 10.2 FL (9.6-12.0); Monocytes % 10.7 % (1.7-12.7); Neutrophils % 67.6 % (38.7-73.9); Platelet Count 114 T/CUMM (130-400); Red Blood Count 2.95 MC/CUMM (3.8-5.5); Red Cell Distribution Width 15.9 % (9.3-17.3); White Blood Count 10.4 T/CUMM (4-12)
[2019-04-27 05:22] LABS: Alanine Aminotransferase 23 U/L (16-61); Albumin 2.8 G/DL (3.4-5.0); Alkaline Phosphatase 58 U/L (45-117); Aspartate Amino Transferase 17 U/L (0-37); Bilirubin,Indirect 0.2 MG/DL (0.0-1.0); Bilirubin,Total < 0.39 MG/DL (0.2-1.0); Blood Urea Nitrogen 27 MG/DL (7-18); Calcium 7.9 MG/DL (8.5-10.1); Estimated Glom Filtration Rate 73 ML/MIN; Glucose 166 MG/DL (74-106); Osmolality,Calculated 285.5 MOS/KG (273-304); Total Protein 5.3 G/DL (6.4-8.3); Troponin I 0.758 NG/ML (0.00-0.045)
[2019-04-27] MEDS ORDERED: FUROSEMIDE 40 MG/4 ML VIAL IV ONE (06:00)
[2019-04-27] MEDS: MAGNESIUM SULF RIDER 2 GM in PREMIX 1 EACH IV PRN (06:20)
[2019-04-27] MEDS: ASCORBIC ACID 500 MG TABLET PO SCH ×2 (08:19→20:54)
[2019-04-27] MEDS: METOPROLOL TARTRATE 25 MG TABLET PO SCH ×2 (08:19→20:55)
[2019-04-27] MEDS: ASPIRIN EC 81 MG TABLET PO SCH (08:19)
[2019-04-27] MEDS: MAGNESIUM HYDROXIDE SUSP 30 ML UDCUP PO PRN (08:19)
[2019-04-27] MEDS: CLORAZEPATE 7.5 MG TABLET PO PRN ×2 (08:19→20:54)
[2019-04-27] MEDS: ISOSORBIDE MONONITRATE 30 MG TABLET PO SCH (08:20)
[2019-04-27] MEDS: FERROUS SULFATE 325 MG TABLET PO SCH (08:20)
[2019-04-27] MEDS: hydroCHLOROthiazide 12.5 MG CAPSULE PO SCH ×2 (08:20→20:54)
[2019-04-27] MEDS: AMIODARONE 200 MG TABLET PO SCH ×2 (08:20→20:55)
[2019-04-27] MEDS: PANTOPRAZOLE 40 MG TABLET PO SCH (08:20)
[2019-04-27] MEDS: DOCUSATE SODIUM 100 MG CAPSULE PO SCH (08:20)
[2019-04-27] MEDS: CHLORHEXIDINE 0.12% ORAL RINSE 60 ML BOTTLE SWISH/SPIT SCH ×2 (11:52→21:00)
[2019-04-27] MEDS: ATORVASTATIN 80 MG TABLET PO SCH (20:55)
[2019-04-27] MEDS: ZALEPLON 5 MG CAPSULE PO PRN (22:43)
[2019-04-28] MEDS: ALBUTEROL/IPRATROPIUM 3 ML NEB RESP TX SCH ×8 (00:59→23:49)
[2019-04-28] MEDS: HYDROmorphone 2 MG/1 ML VIAL IV PRN ×5 (03:55→21:05)
[2019-04-28 05:01] LABS: Basophils % 0.3 % (0.0-0.8); Eosinophils # 0.5 10*3/uL (0.0-0.87); Eosinophils % 4.2 % (0.00-10.9); Hematocrit 31.2 VOL% (42.0-52.0); Hemoglobin 9.7 GM/DL (14.0-18.0); Immature Granulocytes % 0.4 %; Immature Granulocytes Absolute 0.05 #; Lymphocytes # 2.4 10*3/uL (1.4-4.0); Lymphocytes % 21.3 % (21.2-54.2); Mean Corpuscular HGB Conc 31.1 GM/DL (32-36); Mean Corpuscular Volume 94.3 FL (87-102); Mean Platelet Volume 10.3 FL (9.6-12.0); Monocytes % 11.9 % (1.7-12.7); Neutrophils % 61.9 % (38.7-73.9); Platelet Count 135 T/CUMM (130-400); Red Blood Count 3.31 MC/CUMM (3.8-5.5); Red Cell Distribution Width 15.5 % (9.3-17.3); White Blood Count 11.3 T/CUMM (4-12)
[2019-04-28 05:26] LABS: Alanine Aminotransferase 33 U/L (16-61); Albumin 2.9 G/DL (3.4-5.0); Alkaline Phosphatase 78 U/L (45-117); Aspartate Amino Transferase 22 U/L (0-37); Bilirubin,Indirect 0.6 MG/DL (0.0-1.0); Blood Urea Nitrogen 22 MG/DL (7-18); Calcium 8.8 MG/DL (8.5-10.1); Estimated Glom Filtration Rate 92 ML/MIN; Glucose 152 MG/DL (74-106); Osmolality,Calculated 278.8 MOS/KG (273-304); Total Protein 5.9 G/DL (6.4-8.3)
[2019-04-28 05:27] LABS: Troponin I 0.443 NG/ML (0.00-0.045)
[2019-04-28] MEDS: MAGNESIUM SULF RIDER 2 GM in PREMIX 1 EACH IV PRN (08:54)
[2019-04-28] MEDS: hydroCHLOROthiazide 12.5 MG CAPSULE PO SCH ×2 (08:54→20:43)
[2019-04-28] MEDS: ASPIRIN EC 81 MG TABLET PO SCH (08:54)
[2019-04-28] MEDS: AMIODARONE 200 MG TABLET PO SCH ×2 (08:54→20:43)
[2019-04-28] MEDS: FERROUS SULFATE 325 MG TABLET PO SCH (08:55)
[2019-04-28] MEDS: METOPROLOL TARTRATE 25 MG TABLET PO SCH ×2 (08:55→20:44)
[2019-04-28] MEDS: PANTOPRAZOLE 40 MG TABLET PO SCH (08:55)
[2019-04-28] MEDS: DOCUSATE SODIUM 100 MG CAPSULE PO SCH (08:55)
[2019-04-28] MEDS: ISOSORBIDE MONONITRATE 30 MG TABLET PO SCH (08:55)
[2019-04-28] MEDS: POTASSIUM CHLORIDE 20 MEQ TABLET PO PRN (08:55)
[2019-04-28] MEDS: CLORAZEPATE 7.5 MG TABLET PO PRN (08:55)
[2019-04-28] MEDS: ASCORBIC ACID 500 MG TABLET PO SCH ×2 (08:55→20:44)
[2019-04-28] MEDS: CHLORHEXIDINE 0.12% ORAL RINSE 60 ML BOTTLE SWISH/SPIT SCH ×2 (08:56→20:44)
[2019-04-28] MEDS: ZALEPLON 5 MG CAPSULE PO PRN (20:43)
[2019-04-28] MEDS: ATORVASTATIN 80 MG TABLET PO SCH (20:43)
[2019-04-29] MEDS: HYDROmorphone 2 MG/1 ML VIAL IV PRN ×4 (02:02→14:38)
[2019-04-29] MEDS: ALBUTEROL/IPRATROPIUM 3 ML NEB RESP TX SCH ×5 (03:28→20:32)
[2019-04-29] MEDS: ASPIRIN EC 81 MG TABLET PO SCH (08:35)
[2019-04-29] MEDS: METOPROLOL TARTRATE 25 MG TABLET PO SCH ×2 (08:35→21:23)
[2019-04-29] MEDS: ASCORBIC ACID 500 MG TABLET PO SCH ×2 (08:35→21:22)
[2019-04-29] MEDS: FERROUS SULFATE 325 MG TABLET PO SCH (08:35)
[2019-04-29] MEDS: PANTOPRAZOLE 40 MG TABLET PO SCH (08:35)
[2019-04-29] MEDS: hydroCHLOROthiazide 12.5 MG CAPSULE PO SCH ×2 (08:35→21:23)
[2019-04-29] MEDS: DOCUSATE SODIUM 100 MG CAPSULE PO SCH (08:35)
[2019-04-29] MEDS: AMIODARONE 200 MG TABLET PO SCH ×2 (08:35→21:23)
[2019-04-29] MEDS: CHLORHEXIDINE 0.12% ORAL RINSE 60 ML BOTTLE SWISH/SPIT SCH ×2 (08:39→21:23)
[2019-04-29] MEDS: ATORVASTATIN 80 MG TABLET PO SCH (21:20)
[2019-04-29] MEDS: ZALEPLON 5 MG CAPSULE PO PRN (21:22)
[2019-04-29] MEDS: oxyCODONE IR 5 MG TABLET PO PRN (21:28)
[2019-04-30] MEDS: ALBUTEROL/IPRATROPIUM 3 ML NEB RESP TX SCH ×6 (00:22→20:00)
[2019-04-30 06:22] LABS: Basophils % 0.2 % (0.0-0.8); Eosinophils # 0.5 10*3/uL (0.0-0.87); Eosinophils % 5.7 % (0.00-10.9); Hematocrit 32.5 VOL% (42.0-52.0); Hemoglobin 10.2 GM/DL (14.0-18.0); Immature Granulocytes % 0.7 %; Immature Granulocytes Absolute 0.06 #; Lymphocytes # 1.8 10*3/uL (1.4-4.0); Lymphocytes % 20.7 % (21.2-54.2); Mean Corpuscular HGB Conc 31.4 GM/DL (32-36); Mean Corpuscular Volume 94.2 FL (87-102); Mean Platelet Volume 9.6 FL (9.6-12.0); Monocytes % 14.1 % (1.7-12.7); Neutrophils % 58.6 % (38.7-73.9); Platelet Count 156 T/CUMM (130-400); Red Blood Count 3.45 MC/CUMM (3.8-5.5); Red Cell Distribution Width 14.6 % (9.3-17.3); White Blood Count 8.6 T/CUMM (4-12)
[2019-04-30 06:47] LABS: Alanine Aminotransferase 36 U/L (16-61); Albumin 2.7 G/DL (3.4-5.0); Alkaline Phosphatase 86 U/L (45-117); Aspartate Amino Transferase 23 U/L (0-37); Bilirubin,Indirect 0.5 MG/DL (0.0-1.0); Blood Urea Nitrogen 16 MG/DL (7-18); Estimated Glom Filtration Rate 103 ML/MIN; Glucose 153 MG/DL (74-106); Osmolality,Calculated 276.8 MOS/KG (273-304)
[2019-04-30 06:51] LABS: Troponin I 0.127 NG/ML (0.00-0.045)
[2019-04-30] MEDS: METOPROLOL TARTRATE 25 MG TABLET PO SCH ×2 (09:07→22:09)
[2019-04-30] MEDS: DOCUSATE SODIUM 100 MG CAPSULE PO SCH (09:07)
[2019-04-30] MEDS: ASPIRIN EC 81 MG TABLET PO SCH (09:07)
[2019-04-30] MEDS: hydroCHLOROthiazide 12.5 MG CAPSULE PO SCH ×2 (09:07→22:09)
[2019-04-30] MEDS: PANTOPRAZOLE 40 MG TABLET PO SCH (09:07)
[2019-04-30] MEDS: AMIODARONE 200 MG TABLET PO SCH ×2 (09:07→22:09)
[2019-04-30] MEDS: FERROUS SULFATE 325 MG TABLET PO SCH (09:08)
[2019-04-30] MEDS: ASCORBIC ACID 500 MG TABLET PO SCH ×2 (09:08→22:09)
[2019-04-30] MEDS: oxyCODONE IR 5 MG TABLET PO PRN ×2 (09:08→19:46)
[2019-04-30] MEDS: CHLORHEXIDINE 0.12% ORAL RINSE 60 ML BOTTLE SWISH/SPIT SCH ×2 (09:14→22:10)
[2019-04-30] MEDS: ATORVASTATIN 80 MG TABLET PO SCH (22:09)
[2019-04-30] MEDS: CLORAZEPATE 7.5 MG TABLET PO PRN (22:09)
[2019-04-30] MEDS: ZALEPLON 5 MG CAPSULE PO PRN (22:09)
[2019-05-01] MEDS: ALBUTEROL/IPRATROPIUM 3 ML NEB RESP TX SCH ×7 (00:09→23:12)
[2019-05-01] MEDS: oxyCODONE IR 5 MG TABLET PO PRN ×4 (03:53→22:07)
[2019-05-01 05:54] LABS: Basophils % 0.4 % (0.0-0.8); Eosinophils # 0.4 10*3/uL (0.0-0.87); Hematocrit 32.4 VOL% (42.0-52.0); Hemoglobin 10.3 GM/DL (14.0-18.0); Immature Granulocytes % 0.8 %; Immature Granulocytes Absolute 0.07 #; Lymphocytes # 1.5 10*3/uL (1.4-4.0); Lymphocytes % 18.1 % (21.2-54.2); Mean Corpuscular HGB Conc 31.8 GM/DL (32-36); Mean Platelet Volume 9.4 FL (9.6-12.0); Monocytes % 14.9 % (1.7-12.7); Neutrophils % 60.8 % (38.7-73.9); Platelet Count 180 T/CUMM (130-400); Red Blood Count 3.52 MC/CUMM (3.8-5.5); Red Cell Distribution Width 14.4 % (9.3-17.3); White Blood Count 8.5 T/CUMM (4-12)
[2019-05-01 06:29] LABS: Alanine Aminotransferase 35 U/L (16-61); Albumin 2.9 G/DL (3.4-5.0); Alkaline Phosphatase 87 U/L (45-117); Aspartate Amino Transferase 19 U/L (0-37); Bilirubin,Indirect 0.5 MG/DL (0.0-1.0); Blood Urea Nitrogen 16 MG/DL (7-18); Estimated Glom Filtration Rate 90 ML/MIN; Glucose 186 MG/DL (74-106); Osmolality,Calculated 288.1 MOS/KG (273-304); Total Protein 6.3 G/DL (6.4-8.3); Troponin I 0.093 NG/ML (0.00-0.045)
[2019-05-01] MEDS: FERROUS SULFATE 325 MG TABLET PO SCH (09:24)
[2019-05-01] MEDS: hydroCHLOROthiazide 12.5 MG CAPSULE PO SCH ×2 (09:24→22:07)
[2019-05-01] MEDS: CLORAZEPATE 7.5 MG TABLET PO PRN ×3 (09:24→22:06)
[2019-05-01] MEDS: ASCORBIC ACID 500 MG TABLET PO SCH ×2 (09:25→22:06)
[2019-05-01] MEDS: ASPIRIN EC 81 MG TABLET PO SCH (09:25)
[2019-05-01] MEDS: DOCUSATE SODIUM 100 MG CAPSULE PO SCH (09:25)
[2019-05-01] MEDS: AMIODARONE 200 MG TABLET PO SCH ×2 (09:25→22:06)
[2019-05-01] MEDS: PANTOPRAZOLE 40 MG TABLET PO SCH (09:25)
[2019-05-01] MEDS: CHLORHEXIDINE 0.12% ORAL RINSE 60 ML BOTTLE SWISH/SPIT SCH ×2 (09:27→22:09)
[2019-05-01] MEDS: METOPROLOL TARTRATE 25 MG TABLET PO SCH ×2 (09:27→22:07)
[2019-05-01] MEDS: MAGNESIUM SULF RIDER 2 GM in PREMIX 1 EACH IV PRN (09:28)
[2019-05-01] MEDS: ATORVASTATIN 80 MG TABLET PO SCH (22:07)
[2019-05-01] MEDS: ZALEPLON 5 MG CAPSULE PO PRN (22:07)
[2019-05-02] MEDS: HYDROmorphone 2 MG/1 ML VIAL IV PRN (03:07)
[2019-05-02] MEDS: ALBUTEROL/IPRATROPIUM 3 ML NEB RESP TX SCH ×6 (03:09→23:21)
[2019-05-02] MEDS: ASPIRIN EC 81 MG TABLET PO SCH (09:16)
[2019-05-02] MEDS: FERROUS SULFATE 325 MG TABLET PO SCH (09:16)
[2019-05-02] MEDS: hydroCHLOROthiazide 12.5 MG CAPSULE PO SCH ×2 (09:16→20:38)
[2019-05-02] MEDS: DOCUSATE SODIUM 100 MG CAPSULE PO SCH (09:16)
[2019-05-02] MEDS: oxyCODONE IR 5 MG TABLET PO PRN (09:16)
[2019-05-02] MEDS: METOPROLOL TARTRATE 25 MG TABLET PO SCH ×2 (09:16→20:38)
[2019-05-02] MEDS: PANTOPRAZOLE 40 MG TABLET PO SCH (09:16)
[2019-05-02] MEDS: ASCORBIC ACID 500 MG TABLET PO SCH ×2 (09:16→20:38)
[2019-05-02] MEDS: AMIODARONE 200 MG TABLET PO SCH (09:16)
[2019-05-02] MEDS: CHLORHEXIDINE 0.12% ORAL RINSE 60 ML BOTTLE SWISH/SPIT SCH ×2 (09:17→20:38)
[2019-05-02] MEDS ORDERED: HYDROmorphone 2 MG/1 ML VIAL IV PRN (09:21)
[2019-05-02] MEDS: CLORAZEPATE 3.75 MG TABLET PO PRN ×2 (14:14→22:44)
[2019-05-02] MEDS: GABAPENTIN 100 MG CAPSULE PO SCH ×2 (15:47→20:37)
[2019-05-02] MEDS: ATORVASTATIN 80 MG TABLET PO SCH (20:38)
[2019-05-03] MEDS: ALBUTEROL/IPRATROPIUM 3 ML NEB RESP TX SCH ×5 (04:09→21:16)
[2019-05-03] MEDS: GABAPENTIN 100 MG CAPSULE PO SCH ×3 (08:51→20:47)
[2019-05-03] MEDS: CLORAZEPATE 3.75 MG TABLET PO PRN ×2 (08:51→14:12)
[2019-05-03] MEDS: hydroCHLOROthiazide 12.5 MG CAPSULE PO SCH ×2 (08:51→20:47)
[2019-05-03] MEDS: DOCUSATE SODIUM 100 MG CAPSULE PO SCH (08:52)
[2019-05-03] MEDS: ASPIRIN EC 81 MG TABLET PO SCH (08:52)
[2019-05-03] MEDS: ASCORBIC ACID 500 MG TABLET PO SCH ×2 (08:52→20:47)
[2019-05-03] MEDS: CHLORHEXIDINE 0.12% ORAL RINSE 60 ML BOTTLE SWISH/SPIT SCH ×2 (08:52→20:48)
[2019-05-03] MEDS: PANTOPRAZOLE 40 MG TABLET PO SCH (08:52)
[2019-05-03] MEDS: FERROUS SULFATE 325 MG TABLET PO SCH (08:52)
[2019-05-03] MEDS ORDERED: AMIODARONE 200 MG TABLET PO SCH (09:00)
[2019-05-03] MEDS: MAGNESIUM OXIDE 400 MG TABLET PO SCH ×2 (11:17→20:47)
[2019-05-03 13:43] LABS: Calcium 9.1 MG/DL (8.5-10.1)
[2019-05-03] MEDS: MAGNESIUM SULF RIDER 2 GM in PREMIX 1 EACH IV PRN (14:12)
[2019-05-03] MEDS: POTASSIUM CHLORIDE 20 MEQ TABLET PO PRN ×2 (14:12→16:07)
[2019-05-03] MEDS: MAGNESIUM HYDROXIDE SUSP 30 ML UDCUP PO PRN (20:46)
[2019-05-03] MEDS: ZALEPLON 5 MG CAPSULE PO PRN (20:47)
[2019-05-03] MEDS: ATORVASTATIN 80 MG TABLET PO SCH (20:47)
[2019-05-04] MEDS: ALBUTEROL/IPRATROPIUM 3 ML NEB RESP TX SCH ×4 (00:36→12:04)
[2019-05-04 05:13] LABS: Basophils # 0.1 10*3/uL (0.0-0.2); Basophils % 0.5 % (0.0-0.8); Eosinophils # 0.3 10*3/uL (0.0-0.87); Eosinophils % 3.5 % (0.00-10.9); Hematocrit 30.9 VOL% (42.0-52.0); Hemoglobin 9.8 GM/DL (14.0-18.0); Immature Granulocytes % 0.7 %; Immature Granulocytes Absolute 0.07 #; Lymphocytes # 1.9 10*3/uL (1.4-4.0); Lymphocytes % 19.8 % (21.2-54.2); Mean Corpuscular HGB Conc 31.7 GM/DL (32-36); Mean Corpuscular Volume 92.8 FL (87-102); Mean Platelet Volume 9.5 FL (9.6-12.0); Monocytes % 10.2 % (1.7-12.7); Neutrophils % 65.3 % (38.7-73.9); Platelet Count 158 T/CUMM (130-400); Red Blood Count 3.33 MC/CUMM (3.8-5.5); Red Cell Distribution Width 14.5 % (9.3-17.3); White Blood Count 9.6 T/CUMM (4-12)
[2019-05-04 05:28] LABS: Calcium 8.8 MG/DL (8.5-10.1); Osmolality,Calculated 283.5 MOS/KG (273-304)
[2019-05-04] MEDS: hydroCHLOROthiazide 12.5 MG CAPSULE PO SCH (08:11)
[2019-05-04] MEDS: GABAPENTIN 100 MG CAPSULE PO SCH (08:11)
[2019-05-04] MEDS: MAGNESIUM OXIDE 400 MG TABLET PO SCH (08:11)
[2019-05-04] MEDS: PANTOPRAZOLE 40 MG TABLET PO SCH (08:12)
[2019-05-04] MEDS: DOCUSATE SODIUM 100 MG CAPSULE PO SCH (08:12)
[2019-05-04] MEDS: FERROUS SULFATE 325 MG TABLET PO SCH (08:12)
[2019-05-04] MEDS: ASCORBIC ACID 500 MG TABLET PO SCH (08:12)
[2019-05-04] MEDS: ASPIRIN EC 81 MG TABLET PO SCH (08:13)
[2019-05-04] MEDS: CHLORHEXIDINE 0.12% ORAL RINSE 60 ML BOTTLE SWISH/SPIT SCH (08:13)
[2019-05-04] MEDS ORDERED: METOPROLOL TARTRATE 25 MG TABLET PO SCH (09:00)
[2019-05-04 13:01] VITALS: BP 138/70
[2019-05-04] MEDS: MAGNESIUM HYDROXIDE SUSP 30 ML UDCUP PO PRN (13:55)
== END 2019-05-04 14:21 | disposition home health service (06) | DRG 234 ==
LOC: N.CL 10:45 → N.TELES 14:51 → N.CVR 04-24 11:46 → N.ICU 04-25 11:11 → N.TELES 04-26 14:58
PROVIDERS: ADMIT Internal Medicine Cardiovascular Disease
PROC: CLCCHCL (ICD-10-PCS; 2019-04-21 13:45)

== ENCOUNTER 2022-07-03 17:03 | Inpatient (IN) ==
[2022-07-03] MEDS ORDERED: ASPIRIN 325 MG TABLET PO STA (17:32)
[2022-07-03] MEDS ORDERED: NITROGLYCERIN SL 0.4 MG TABLET SL STA (17:36)
[2022-07-03] MEDS ORDERED: NITROGLYCERIN SL 0.4 MG TABLET SL ONE (17:37)
[2022-07-03 17:41] LABS: Basophils # 0.1 10*3/uL (0.0-0.2); Basophils % 0.5 % (0.0-0.8); Eosinophils # 0.2 10*3/uL (0.0-0.87); Eosinophils % 1.4 % (0.00-10.9); Hematocrit 39.4 VOL% (42.0-52.0); Hemoglobin 12.8 GM/DL (14.0-18.0); Immature Granulocytes % 0.3 %; Immature Granulocytes Absolute 0.03 #; Lymphocytes # 3.5 10*3/uL (1.4-4.0); Lymphocytes % 32.3 % (21.2-54.2); Mean Corpuscular HGB Conc 32.5 GM/DL (32-36); Mean Corpuscular Volume 91.4 FL (87-102); Mean Platelet Volume 9.4 FL (9.6-12.0); Monocytes # 0.9 10*3/uL (0.11-0.8); Monocytes % 8.1 % (1.7-12.7); NRBC # 0.02 10*3/uL; Neutrophils % 57.4 % (38.7-73.9); Platelet Count 183 T/CUMM (130-400); Red Blood Count 4.31 MC/CUMM (3.8-5.5); Red Cell Distribution Width 17.1 % (9.3-17.3)
[2022-07-03 17:56] LABS: Albumin 3.5 G/DL (3.4-5.0); Bilirubin,Total 0.7 MG/DL (0.20-1.00); Calcium 9.7 MG/DL (8.5-10.1); Osmolality,Calculated 280.4 MOS/KG (273-304); Potassium 3.8 MMOL/L (3.5-5.1); Total Protein 7.7 G/DL (6.4-8.2)
[2022-07-03] MEDS ORDERED: ENOXAPARIN 80 MG/0.8 ML SYRINGE SUBCUT STA (18:53)
[2022-07-03] MEDS ORDERED: hydrALAZINE 20 MG/1 ML VIAL IV PRN (20:05)
[2022-07-03] MEDS ORDERED: ONDANSETRON 4 MG/2 ML VIAL IV PRN (20:05)
[2022-07-03] MEDS ORDERED: ACETAMINOPHEN 325 MG TABLET PO PRN (20:05)
[2022-07-03] MEDS ORDERED: MORPHINE 2 MG/1 ML SYRINGE IV PRN (20:05)
[2022-07-03] MEDS ORDERED: NITROGLYCERIN SL 0.4 MG TABLET SL PRN (20:10)
[2022-07-03 20:31] LABS: % Iron Saturation 26.4 % (18-50)
[2022-07-03 20:34] LABS: Thyroid Stimulating Hormone 1.88 uIU/ml (0.358-3.74)
[2022-07-03 20:51] LABS: Folate 17.67 NG/ML (5.38-24.0)
[2022-07-03] MEDS ORDERED: ENOXAPARIN 40 MG/0.4 ML SYRINGE SUBCUT SCH (21:30)
[2022-07-03] MEDS: ATORVASTATIN 80 MG TABLET PO SCH (21:38)
[2022-07-03] MEDS: METOPROLOL TARTRATE 25 MG TABLET PO SCH (21:38)
[2022-07-03] MEDS ORDERED: ZALEPLON 5 MG CAPSULE PO STA (21:47)
[2022-07-04 00:56] LABS: Basophils # 0.1 10*3/uL (0.0-0.2); Basophils % 0.7 % (0.0-0.8); Eosinophils # 0.2 10*3/uL (0.0-0.87); Eosinophils % 2.1 % (0.00-10.9); Hematocrit 37.1 VOL% (42.0-52.0); Hemoglobin 11.8 GM/DL (14.0-18.0); Immature Granulocytes % 0.4 %; Immature Granulocytes Absolute 0.04 #; Lymphocytes % 31.6 % (21.2-54.2); Mean Corpuscular HGB Conc 31.8 GM/DL (32-36); Mean Corpuscular Volume 92.8 FL (87-102); Mean Platelet Volume 9.6 FL (9.6-12.0); Monocytes % 10.4 % (1.7-12.7); Neutrophils % 54.8 % (38.7-73.9); Platelet Count 140 T/CUMM (130-400); Red Cell Distribution Width 17.2 % (9.3-17.3); White Blood Count 9.5 T/CUMM (4-12)
[2022-07-04 01:29] LABS: Albumin 3.5 G/DL (3.4-5.0); Bilirubin,Total 0.4 MG/DL (0.20-1.00); Calcium 9.6 MG/DL (8.5-10.1); Osmolality,Calculated 276.7 MOS/KG (273-304); Potassium 3.7 MMOL/L (3.5-5.1); Risk Ratio 3.02; Total Protein 7.1 G/DL (6.4-8.2); VLDL Cholesterol 49.2 MG/DL
[2022-07-04] MEDS: ALBUTEROL 2.5 MG/3 ML NEB RESP TX SCH ×4 (02:03→20:32)
[2022-07-04] MEDS: FUROSEMIDE 40 MG TABLET PO SCH (09:57)
[2022-07-04] MEDS: VENLAFAXINE 75 MG TABLET PO SCH (09:57)
[2022-07-04] MEDS: METOPROLOL TARTRATE 25 MG TABLET PO SCH ×2 (09:57→21:07)
[2022-07-04] MEDS: PANTOPRAZOLE 40 MG TABLET PO SCH (09:58)
[2022-07-04] MEDS: ASPIRIN EC 81 MG TABLET PO SCH (09:58)
[2022-07-04] MEDS: VALSARTAN 80 MG TABLET PO SCH (09:58)
[2022-07-04] MEDS: allopurinoL 300 MG TABLET PO SCH (09:58)
[2022-07-04] MEDS ORDERED: MAGNESIUM SULF RIDER 4 GM/100 ML PREMIX IV PRN (12:31)
[2022-07-04] MEDS ORDERED: MAGNESIUM SULF RIDER 2 GM/50 ML PREMIX IV PRN (12:31)
[2022-07-04] MEDS ORDERED: diphenhydrAMINE CAP 25 MG CAPSULE PO ONE (13:54)
[2022-07-04] MEDS ORDERED: DIAZEPAM 5 MG TABLET PO ONE (13:54)
[2022-07-04] MEDS ORDERED: SODIUM CHLORIDE 0.45% 1,000 ML IV SCH (14:00)
[2022-07-04] MEDS ORDERED: HEPARIN/NACL 0.9% 2 UNITS/ML 2,000 UNIT/1,000 ML BAG IV ONE (14:02)
[2022-07-04] MEDS ORDERED: HYDROmorphone 1 MG/1 ML SYRINGE ONE ×2 (14:54→15:14)
[2022-07-04] MEDS ORDERED: MIDAZOLAM 2 MG/2 ML VIAL ONE (14:55)
[2022-07-04] MEDS ORDERED: diphenhydrAMINE 50 MG/1 ML VIAL ONE (15:11)
[2022-07-04] MEDS ORDERED: SODIUM CHLORIDE 0.9% 1,000 ML IV SCH (16:30)
[2022-07-04 16:54] LABS: Arterial Base Excess iSTAT 0 MMOL/L (-2.5-2.5); Arterial Bicarbonate iSTAT 25.7 MMOL/L (20-26); Arterial O2 Saturation iSTAT 96 % (95-100); Arterial PCO2 iSTAT 43 MM HG (35-48); Arterial PO2 iSTAT 81 MM HG (80-95); Arterial Total CO2 iSTAT 27 MMO/L (23-27); Arterial pH iSTAT 7.381 (7.35-7.45)
[2022-07-04] MEDS ORDERED: traZODone 50 MG TABLET PO SCH (21:00)
[2022-07-04] MEDS ORDERED: ENOXAPARIN 40 MG/0.4 ML SYRINGE SUBCUT SCH (21:00)
[2022-07-04] MEDS: ATORVASTATIN 80 MG TABLET PO SCH (21:07)
[2022-07-05] MEDS: ALBUTEROL 2.5 MG/3 ML NEB RESP TX SCH ×3 (00:17→12:34)
[2022-07-05 05:50] LABS: Basophils # 0.1 10*3/uL (0.0-0.2); Basophils % 0.7 % (0.0-0.8); Eosinophils # 0.2 10*3/uL (0.0-0.87); Eosinophils % 2.8 % (0.00-10.9); Hemoglobin 11.1 GM/DL (14.0-18.0); Immature Granulocytes % 0.4 %; Immature Granulocytes Absolute 0.03 #; Lymphocytes # 2.6 10*3/uL (1.4-4.0); Lymphocytes % 30.8 % (21.2-54.2); Mean Corpuscular HGB Conc 30.8 GM/DL (32-36); Mean Corpuscular Volume 95.7 FL (87-102); Mean Platelet Volume 9.4 FL (9.6-12.0); Monocytes # 0.9 10*3/uL (0.11-0.8); Monocytes % 11.3 % (1.7-12.7); Platelet Count 128 T/CUMM (130-400); Red Blood Count 3.76 MC/CUMM (3.8-5.5); Red Cell Distribution Width 17.3 % (9.3-17.3); White Blood Count 8.3 T/CUMM (4-12)
[2022-07-05 06:08] LABS: Osmolality,Calculated 290.7 MOS/KG (273-304); Potassium 4.5 MMOL/L (3.5-5.1)
[2022-07-05] MEDS ORDERED: ISOSORBIDE MONONITRATE 30 MG TABLET PO SCH (09:00)
[2022-07-05] MEDS: allopurinoL 300 MG TABLET PO SCH (09:14)
[2022-07-05] MEDS: VENLAFAXINE 75 MG TABLET PO SCH (09:14)
[2022-07-05] MEDS: VALSARTAN 80 MG TABLET PO SCH (09:14)
[2022-07-05] MEDS: PANTOPRAZOLE 40 MG TABLET PO SCH (09:14)
[2022-07-05] MEDS: METOPROLOL TARTRATE 25 MG TABLET PO SCH (09:14)
[2022-07-05] MEDS: ASPIRIN EC 81 MG TABLET PO SCH (09:15)
[2022-07-05] MEDS: FUROSEMIDE 40 MG TABLET PO SCH (09:15)
[2022-07-05] MEDS ORDERED: KETOROLAC 30 MG/1 ML VIAL IV ONE (10:10)
[2022-07-05] MEDS ORDERED: DAPAGLIFLOZIN 5 MG TABLET PO SCH (10:16)
[2022-07-05 11:36] VITALS: BP 112/61
== END 2022-07-05 14:22 | disposition home or self-care (01) | DRG 287 ==
LOC: N.ED 17:03 → N.EDINP 20:05 → N.TELES 22:09
PROVIDERS: ADMIT Internal Medicine Geriatric Medicine; ATTEND Internal Medicine Geriatric Medicine